=== PATIENT | male | born 1990 | race Asian ===

== ENCOUNTER 2025-03-30 15:12 | Emergency (ER) | payer BC, SELFPAY ==
[2025-03-30 15:14] VITALS: BP 165/92
[2025-03-30 15:36] LABS: Hematocrit 43.6 % (39.0-52.0); Hemoglobin 14.1 g/dL (13.0-18.0); Mean Corp Hgb Conc. 32.3 g/dL (33.0-37.0); Mean Corpuscular Volume 87.4 fL (80.0-94.0); Nucleated Red Blood Cells % 0 % (-); Platelet Count 220 10^3/uL (130-400); Red Cell Dist. Width 12.5 % (11.5-14.5)
[2025-03-30 15:41] LABS: Urine Character Clear (Clear)
[2025-03-30 16:16] LABS: ALT (SGPT) 19 U/L (0-50); AST (SGOT) 23 U/L (17-59); Albumin 5.0 g/dl (3.5-5.0); Alkaline Phosphatase 49 U/L (38-126); Blood Urea Nitrogen 19 mg/dl (9-20); Calcium 9.5 mg/dl (8.4-10.2); Carbon Dioxide 26 mmol/L (22-30); Chloride 103 mmol/L (98-107); Glucose 135 mg/dl (70-99); Lipase 186 U/L (23-300); Potassium 4.2 mmol/L (3.5-5.1); Sodium 139 mmol/L (135-145); Total Protein 8.1 g/dl (6.3-8.2); eGFR > 60.00
[2025-03-30 16:33] LABS: Urine Squamous Cell 0-2 /LPF (Few)
[2025-03-30 16:34] LABS: Urine Red Blood Cell 0-2 /HPF (0-2); Urine White Cell 0-2 /HPF (0-5)
[2025-03-30 17:53] VITALS: BMI 23.8
[2025-03-30 17:55] VITALS: BP 126/85
[2025-03-30 18:00] VITALS: BP 152/97
[2025-03-30] MEDS: ZOFRAN 4 MG IV (18:11)
[2025-03-30] MEDS: TORADOL 15 MG IV (18:11)
[2025-03-30 19:12] VITALS: BP 116/69
--- NOTE | 2025-03-30 19:16 | ED.GENMED ---
History of Present Illness
General
Chief Complaint: Abdominal Pain
Time Seen by Provider: 03/30/25 17:18
History of Present Illness
History of Present Illness:
35-year-old male without significant past medical history presenting for left sided abdominal pain testicular pain. Patient reports pain for the past 2 days. Reports that the testicle is particularly painful and swollen. He thinks that his child
accidentally struck him in the testicle 2 days ago. He denies any urinary complaints. He notes some generalized lower back pain. Denies fever. Has had some nausea and vomiting. Denies any history of abdominal surgeries. Denies chest pain or
difficulty breathing or additional acute medical complaints.
Phy Exam
Physical Exam
Physical Exam:
General: Well-appearing, no clinical signs of dehydration, nontoxic and in no acute distress
HEENT: protecting airway
Neck: appears supple
CV: Normal heart rate, regular rhythm
Resp: No accessory muscle use, no increased work of breathing, lungs clear to auscultation bilaterally
Abd: Soft and non-distended, no tenderness to palpation, normal bowel sounds. No CVA tenderness
Extremities: No deformities, no swelling, no erythema
Neuro: alert, no focal neurologic deficit
: Swollen and tender left testicle
Rectal: deferred
Psych: Normal affect
Skin: Intact
Course
Orders/Labs/Results
Orders:
Orders
03/30/25 15:20
Complete Blood Count/With Diff Urgent
Comprehensive Metabolic Panel Urgent
Lipase Urgent
03/30/25 15:24
Urinalysis Urgent
Date Specimen was Collected: 03/30/25
Time Specimen was Collected: 15:23
Urine Microscopic Urgent
Date Specimen was Collected: 03/30/25
Time Specimen was Collected: 15:23
03/30/25 18:04
Ketorolac [Toradol] 15 mg IV NOW STA
Ondansetron Injectable [Zofran] 4 mg IV NOW STA
Scrotum US [US Scrotum] Urgent
Comment:
Reason For Exam: L-swelling and pain
Abnormal Lab Results
03/30/25 03/30/25
15:20 15:24
MCHC 32.3 L g/dL
(33.0-37.0)
Abs Immat Gran (auto) 0.1 H 10^3/uL
(0-0.05)
Absolute Monos (auto) 1.0 H 10^3/uL
(0.1-0.6)
Immature Gran % 0.6 H %
(0-0.5)
Neutrophils % 40.4 L %
(42.2-75.2)
Monocytes % 12.5 H %
(1.7-9.3)
Glucose 135 H mg/dl
(70-99)
Urine Occult Blood 1+ A
(Negative)
Urine Bacteria Few A
(Negative)
03/30/25 15:20
03/30/25 15:20
Vital Signs
Initial and Last Documented VS:
Initial Vital Signs
Temp Pulse Resp BP Pulse Ox
97.5 F 56 16 165/92 100
03/30/25 15:14 03/30/25 15:14 03/30/25 15:14 03/30/25 15:14 03/30/25 15:14
Last Documented Vital Signs
Temp Pulse Resp BP Pulse Ox
97.5 F 71 18 152/97 100
03/30/25 15:14 03/30/25 18:02 03/30/25 18:02 03/30/25 18:00 03/30/25 18:01
MDM/Problems Addressed
MDM/Problems Addressed:
35-year-old male presenting with left testicular swelling for 2 days. Vital signs aresignificant for mild hypertension.
On exam, patient is resting comfortably, no acute distress. Patient notes that the pain is starting in the testicle, going up to his abdomen. No reproducible tenderness to the abdomen with lower suspicion for intra-abdominal process such as
diverticulitis. Ultimately suspect testicular origin of pain. Patient notes the pain did start after trauma to the testicular region with concern for torsion versus hematoma. Infection is also consideration. Plan for laboratory analysis,
urinalysis, scrotal ultrasound.
Ultrasound is consistent with an intratesticular hematoma. No sign of torsion. In discussion with urology, supportive therapy with ice, NSAIDs, scrotal support. Feel stable for discharge. Return precautions discussed and patient verbalized
understanding
*Pulse Oximetry
SaO2: 100
Oxygen Mode of Delivery: Room air
Patient hypoxic: no
*Critical Care Note
Total Time (30-74mins, 75-104mins- exclusive of procedures): Not Applicable
ED Attending Note
-
Portions of this chart may have been created with voice recognition software.� Occasional wrong word or��sound alike� substitutions may have occurred due to the inherent limitations of voice recognition software.
Discharge Plan
Interventions
Interventions:
*Risk Screen - Suicide Last Done: 03/30/25 15:14
*General Assessment Last Done: 03/30/25 15:14
*Neglect/Abuse Screening Last Done: 03/30/25 18:10
*ED- Fall Risk Assessment Last Done: 03/30/25 18:10
*ED COVID-19 Vaccine History Last Done: 03/30/25 18:10
[facility]-Xclkeo-Hyzcbryxss Assessment Last Done: 03/30/25 18:02
Discharge Date and Time
Print Language: [id number]
== END 2025-03-30 20:34 | disposition home or self-care (01) ==
LOC: EMR 15:12
PROVIDERS: EMERGENCY PHYSICIAN Student in an Organized Health Care Education/Training Program; FAMILY PHYSICIAN Family Medicine
DX: S30.22XA Contusion of scrotum and testes, initial encounter (principal); W50.0XXA Accidental hit or strike by another person, initial encounter; R03.0 Elevated blood-pressure reading, without diagnosis of hypertension
CPT/HCPCS: 99284; 96374; 96375; 76870; 80053; 81003; 81015; 83690; 85025; 93976